=== PATIENT | female | born 1935 | race Caucasian/White ===

== ENCOUNTER → 2016-08-01 | Outpatient (CLI) | payer MEDICARE, BC ==
[~2016-08-01] MED LIST: ASPI325T24 PO; CEPH500C3 PO; DOXY100T PO; HYDR200T42 PO; SIMV20 PO; VERA240T18 PO
--- NOTE | 2016-08-20 12:04 | RSPPFT ---
DATE OF PROCEDURE: 08/01/16 COMMENTS: Spirometry demonstrates an FEV1 of 1.0 at 65% of predicted, FVC of 1.5 at 65%, FEV1/FVC ratio at 67%. The FEF 25-75 is 33% of predicted. Post-bronchodilator study demonstrated no significant change. Lung volumes demonstrated a raised RV/TLC ratio suggesting hyperinflation with air trapping. Diffusion capacity is normal. Flow volume loops suggest an obstructive defect. IMPRESSION: 1. Mild to moderate obstructive disease. 2. No significant change following use of bronchodilator. 3. Normal diffusion capacity.
== END ==
LOC: HRSP 11:56
PROVIDERS: ATTEND Internal Medicine Interventional Cardiology
DX: R06.09 Other forms of dyspnea (principal); I71.2 Thoracic aortic aneurysm, without rupture; R94.39 Abnormal result of other cardiovascular function study; I77.9 Disorder of arteries and arterioles, unspecified; I25.10 Atherosclerotic heart disease of native coronary artery without angina pectoris; I10 Essential (primary) hypertension; I38 Endocarditis, valve unspecified
CPT/HCPCS: 94060; 94726; 94729

== ENCOUNTER 2017-03-09 11:18 | Emergency (ER) | payer MEDICARE, BC ==
[~2017-03-09] VITALS: Ht 157.5 cm; Wt 54.3 kg
[2017-03-09] MEDS ORDERED: ALBUAER3 INH (11:28)
[2017-03-09] MEDS ORDERED: ASPI-146 PO (11:28)
[2017-03-09] MEDS ORDERED: CARV6.252 PO (11:28)
[2017-03-09] MEDS ORDERED: UMEC1AER INH (11:28)
[2017-03-09] MEDS ORDERED: LISI-519 PO (11:28)
[2017-03-09] MEDS ORDERED: SIMV20TA PO (11:28)
[2017-03-09] MEDS ORDERED: VERA1TAB17 PO (11:28)
[2017-03-09 11:29] VITALS: BP 186/83; PULSE 55; RESP 16; TEMP 97.7; O2SAT 98
--- NOTE | 2017-03-09 11:51 | PD ---
HPI Chief Complaint: Respiratory Symptoms Time Seen by Provider: 11:41 Travel History International Travel<30 days: No Contact w/Intl Traveler<30days: No Traveled to known affect area: No History of Present Illness HPI This patient complains of some shortness of breath and pain in her back. It's a sharp stabbing pain. Worse with deep breath. Denies productive cough or hemoptysis or fever. No injury. Gums are nonexertional. Severity is moderate. No alleviating factors. Duration 4 hours PFSH Past Medical History Cancer: Yes (BREAST) Cardiovascular Problems: Yes (hx of silent mi) Chemotherapy: Yes Diabetes: No Diminished Hearing: No Glaucoma: No Hepatitis: No Hypertension: Yes Respiratory: Yes (COPD) Immunizations Current: Yes Myocardial Infarction: Yes Radiation Therapy: Yes Thyroid Disease: No ?: Not Past Surgical History Abdominal Surgery: Yes (appendectomy) Appendectomy: Yes Gynecologic Surgery: Yes (right oopherectomy josesito breast bx which benign) Hysterectomy: Yes (partial) Mastectomy: Yes (LUMPECTOMY LEFT SIDE) Oral Surgery: Yes (t and a) Other Surgery: Yes Social History Alcohol Use: Yes (occ glass of wine) Tobacco Use: No (QUIT ) Substance Use: No Allergies-Medications (Allergen,Severity, Reaction): Coded Allergies: Sulfa (Sulfonamide Antibiotics) (Unverified Allergy, Severe, did not feel well, 02/19/17) Reported Meds & Prescriptions Reported Meds & Active Scripts Active Reported Proair Hfa 8.5 GM Inh (Albuterol Sulfate) 90 Mcg/Act Aer 2 Puff INH Q4-6H PRN 108 mcg/actuation Anoro Ellipta Inh (Umeclidinium/Vilanterol) 62.5-25 Mcg/Act Aero 1 Puff INH DAILY Carvedilol 6.25 Mg Tab 6.25 Mg PO BID Lisinopril 5 Mg Tab 5 Mg PO BID Ecotrin Regular Strength (Aspirin) 325 Mg Tabdr 325 Mg PO DAILY Simvastatin 20 Mg Tab 20 Mg PO DAILY Verapamil ER 24 HR (Verapamil HCl) 240 Mg Tab 240 Mg PO HS Review of Systems General / Constitutional: No: Fever Eyes: No: Visual changes HENT: No: Headaches Cardiovascular: No: Chest Pain or Discomfort Respiratory: Positive: Shortness of Breath, Pleuritic Pain Gastrointestinal: No: Abdominal Pain Genitourinary: No: Dysuria Musculoskeletal: No: Pain Skin: No Rash Neurologic: No: Weakness Psychiatric: No: Depression Endocrine: No: Polydipsia Hematologic/Lymphatic: No: Easy Bruising Physical Exam Narrative GENERAL: Well-nourished, well-developed patient in no apparent distress. SKIN: Focused skin assessment reveals no rash and nodules. Skin is Warm and dry. HEAD: Atraumatic. Normocephalic. EYES: Pupils equal and round. No scleral icterus. No injection or drainage. ENT: No nasal bleeding or discharge. Mucous membranes pink and moist. NECK: Trachea midline. No JVD. CARDIOVASCULAR: Regular rate and rhythm. No murmur appreciated. RESPIRATORY: No accessory muscle use. Clear to auscultation. Breath sounds equal bilaterally. GASTROINTESTINAL: Abdomen soft, non-tender, nondistended. Hepatic and splenic margins not palpable. MUSCULOSKELETAL: No obvious deformities. No clubbing. No cyanosis. No edema. NEUROLOGICAL: Awake and alert. No obvious cranial nerve deficits. Motor grossly within normal limits. Normal speech. PSYCHIATRIC: Appropriate mood and affect; insight and judgment normal. Data Data Last Documented VS Vital Signs Date Time Temp Pulse Resp B/P (MAP) Pulse Ox O2 Delivery O2 Flow Rate FiO2 03/09/17 12:39 58 171/73 (105) 97 03/09/17 11:29 97.7 16 Orders Orders Complete Blood Count With Diff (03/09/17 11:49) Basic Metabolic Panel (Bmp) (03/09/17 11:49) Act Partial Throm Time (Ptt) (03/09/17 11:49) Prothrombin Time / Inr (Pt) (03/09/17 11:49) Iv Access Insert/Monitor (03/09/17 11:49) Electrocardiogram (03/09/17 11:49) Ecg Monitoring (03/09/17 11:49) Oximetry (03/09/17 11:49) Chest, Single Ap (03/09/17 11:49) Sodium Chloride 0.9% Flush (Ns Flush) (03/09/17 12:00) Ct Pulmonary Angiogram (03/09/17 ) Labs Laboratory Tests Test 03/09/17 11:56 White Blood Count 9.2 TH/MM3 Red Blood Count 4.82 MIL/MM3 Hemoglobin 14.6 GM/DL Hematocrit 44.1 % Mean Corpuscular Volume 91.5 FL Mean Corpuscular Hemoglobin 30.2 PG Mean Corpuscular Hemoglobin Concent 33.0 % Red Cell Distribution Width 13.4 % Platelet Count 214 TH/MM3 Mean Platelet Volume 7.4 FL Neutrophils (%) (Auto) 70.5 % Lymphocytes (%) (Auto) 18.4 % Monocytes (%) (Auto) 8.7 % Eosinophils (%) (Auto) 1.3 % Basophils (%) (Auto) 1.1 % Neutrophils # (Auto) 6.5 TH/MM3 Lymphocytes # (Auto) 1.7 TH/MM3 Monocytes # (Auto) 0.8 TH/MM3 Eosinophils # (Auto) 0.1 TH/MM3 Basophils # (Auto) 0.1 TH/MM3 CBC Comment DIFF FINAL Differential Comment Prothrombin Time 11.1 SEC Prothromb Time International Ratio 1.0 RATIO Activated Partial Thromboplast Time 29.3 SEC Blood Urea Nitrogen 20 MG/DL Creatinine 0.82 MG/DL Random Glucose 90 MG/DL Calcium Level 8.8 MG/DL Sodium Level 138 MEQ/L Potassium Level 4.2 MEQ/L Chloride Level 104 MEQ/L Carbon Dioxide Level 28.3 MEQ/L Anion Gap 6 MEQ/L Estimat Glomerular Filtration Rate 67 ML/MIN [facility] Medical Decision Making Medical Screen Exam Complete: Yes Emergency Medical Condition: Yes Medical Record Reviewed: Yes Differential Diagnosis Pleurisy, pneumonia, pneumothorax, PE Narrative Course I have reviewed the patient's electronic medical record. IV placed CBC is normal Metabolic profile is normal Coagulation studies are normal I reviewed her EKG which shows sinus bradycardia with first-degree AV block Extended cardiac monitoring reveals sinus rhythm without ectopy I reviewed her chest x-ray which is negative for emergent problem Given her sharp stabbing pleuritic pain and dyspnea I did a CT pulmonary angiographic to evaluate for PE. She does have history of PE. However, today's CT pulmonary exam is negative Stable for outpatient follow-up Saturations are good and lungs are clear Diagnosis Primary Impression: Pleuritic chest pain Additional Impression: Shortness of breath Additional Instructions: The patient was advised to follow up with their physician and return if they worsen. Med/Other Pt SpecificInfo: Other Disposition: 01 DISCHARGE HOME Condition: Stable Damien Poole MD Mar 09, 2017 11:51
[2017-03-09 11:59] VITALS: O2SAT 99
[2017-03-09] MEDS ORDERED: SODIUM CHLORIDE 0.9% FLUSH 10 ML FLUSH IVF PRN (12:00)
[2017-03-09 12:04] LABS: AUTOMATED NEUTROPHIL # 6.5 TH/MM3 (1.8-7.7); BASOPHIL # 0.1 TH/MM3 (0-0.2); BASOPHIL % 1.1 % (0.0-2.0); EOSINOPHIL # 0.1 TH/MM3 (0-0.4); EOSINOPHIL % 1.3 % (0.0-4.0); HEMATOCRIT 44.1 % (35.0-46.0); HEMO FLAGS DIFF FINAL; LYMPH % 18.4 % (9.0-44.0); LYMPHOCYTE # 1.7 TH/MM3 (1.0-4.8); MEAN CELL VOLUME 91.5 FL (80.0-100.0); MEAN CORPUSCULAR HEMOGLOBIN 30.2 PG (27.0-34.0); MONO % 8.7 % (0.0-8.0); NEUT % 70.5 % (16.0-70.0); PLATELET COUNT 214 TH/MM3 (150-450); RED BLOOD COUNT 4.82 MIL/MM3 (4.00-5.30); RED CELL DISTRIBUTION WIDTH 13.4 % (11.6-17.2); WHITE BLOOD COUNT 9.2 TH/MM3 (4.0-11.0)
[2017-03-09 12:11] LABS: POTASSIUM 4.2 MEQ/L (3.5-5.1)
[2017-03-09 12:14] LABS: BICARBONATE 28.3 MEQ/L (21.0-32.0)
[2017-03-09 12:17] LABS: APTT (PATIENT) 29.3 SEC (24.3-30.1); PROTHROMBIN TIME - PATIENT 11.1 SEC (9.8-11.6)
--- NOTE | 2017-03-09 12:32 | RADRPT ---
EXAM DATE/TIME: 03/09/2017 12:23 [facility] COMPARISON: No previous studies available for comparison. INDICATIONS : Short of breath, posterior chest pains, left upper arm and shoulder pain MEDICAL HISTORY : Chronic obstructive pulmonary disease. Hypertension SURGICAL HISTORY : None. ENCOUNTER: Initial ACUITY: 1 day PAIN SCORE: 9/10 LOCATION: Left posterior upper chest FINDINGS: Mild interstitial edema is present with moderate cardiomegaly. There is no pneumothorax or inflammat ory changes. The portion of the bony skeleton visualized is unremarkable. CONCLUSION: Cardiomegaly with mild to moderate congestive failure. Francisco Rock MD FACR on March 09, 2017 at 12:30 Board Certified Radiologist. This report was verified electronically.
[2017-03-09 12:39] VITALS: BP 171/73; PULSE 58; O2SAT 97
[2017-03-09] MEDS ORDERED: IOHEXOL 350 MG/ML 10 ML VIAL (for RAD DIAG) IVCONTRAST ONE (14:00)
--- NOTE | 2017-03-09 14:16 | RADRPT ---
EXAM DATE/TIME: 03/09/2017 14:02 [facility] COMPARISON: No previous studies available for comparison. INDICATIONS : Pain when breathing in. IV CONTRAST: 73 cc Omnipaque 350 (iohexol) IV RADIATION DOSE: 5.66 CTDIvol (mGy) MEDICAL HISTORY : Carcinoma, breast. Chronic obstructive pulmonary disease. Arotic root aneurysm. SURGICAL HISTORY : Tonsillectomy. Appendectomy.Rt ovary, lumpectomy left, ENCOUNTER: Initial ACUITY: 1 day PAIN SCALE: 5/10 LOCATION: Bilateral chest TECHNIQUE: Volumetric scanning of the chest was performed using a pulmonary embolism protocol MIP images were re constructed. Using automated exposure control and adjustment of the mA and/or kV according to patien t size, radiation dose was kept as low as reasonably achievable to obtain optimal diagnostic quality images. DICOM format image data is available electronically for review and comparison. Follow-up recommendations for detected pulmonary nodules are based at a minimum on nodule size and pa tient risk factors according to Fleischner Society Guidelines. FINDINGS: LUNGS: There is no evidence for central pulmonary emboli with good visualization of the pulmonary arteries. There is no consolidation or pneumothorax . No suspicious lung findings. No pleural effusion. MEDIASTINUM: There is good visualization of the great vessels of the middle mediastinum. No evidence of mediastin al or hilar adenopathy/mass AXILLA: Minimal nonspecific left axillary adenopathy is present. MUSCULOSKELETAL: Within normal limits for patient age. MISCELLANEOUS: The visualized upper abdominal organs demonstrate no acute abnormality. CONCLUSION: There is no evidence for central pulmonary emboli. Mild emphysematous changes. Mild compensated cardiomegaly. Francisco Rock MD FACR on March 09, 2017 at 14:10 Board Certified Radiologist. This report was verified electronically.
--- NOTE | 2017-03-09 17:23 | EKG ---
Date Performed: 03/09/2017 Time Performed: 11:44:49 PTAGE: 81 years EKG: SINUS BRADYCARDIA WITH FIRST DEGREE AV BLOCK ANTEROSEPTAL MYOCARDIAL INFARCTION ABNORMAL EC G INTERPRETATION BASED ON A DEFAULT AGE OF 39 YEARS NO PREVIOUS TRACING DOCTOR: Pramod Rapp Interpretating Date/Time 03/09/2017 17:22:40
== END 2017-03-09 15:07 | disposition home or self-care (01) ==
LOC: PHED 11:18
DX: R07.81 Pleurodynia (principal); R06.02 Shortness of breath; M54.9 Dorsalgia, unspecified; R94.31 Abnormal electrocardiogram [ECG] [EKG]; I10 Essential (primary) hypertension; I25.2 Old myocardial infarction; Z85.3 Personal history of malignant neoplasm of breast; Z86.79 Personal history of other diseases of the circulatory system; Z87.09 Personal history of other diseases of the respiratory system
CPT/HCPCS: 71010; 71275; 80048; 85025; 85610; 85730; 93005; 99285; Q9967